=== PATIENT | male | born 1970 | race Caucasian/White ===

== ENCOUNTER → 2016-09-13 | Day surgery (SDC) | payer OTHER ==
[2016-09-05 13:18] VITALS: BMI 41.0
[~2016-09-13] VITALS: Ht 190.5 cm; Wt 148.2 kg
[~2016-09-13] MED LIST: CZR25 PO; FLUO20CA35 PO; LIDOCAINE HCL 2% 2 ML VIAL (20MG/ML) ONE; MIDAZOLAM HCL 1 MG/ML 2ML VIAL ONE; OMEP40CA41 PO; PROPOFOL IV EMULSION 10 MG/ML 20 ML VIAL IV ONE; RANI150T3 PO
[2016-09-13 12:09] VITALS: Ht 190.5 cm; Wt 148.2 kg
--- NOTE | 2016-09-13 12:42 | Endo History and Physical ---
History & Physical Date of Service: Sep 13, 2016. Chief Complaint: acid reflux, change in bowel habits, fm hx of colon cancer Referring Physician: Dr. Rios History of Present Illness 46 yo CM who presents for EGD secondary to GERD and colonoscopy secondary to family history of colon cancer. Past Surgical History Hx Cardiac Surgery: No Hx Abdominal Surgery: Yes (APPY) Hx Post-Op Nausea and Vomiting: No Hx Cancer Surgery: No Hx Thoracic Surgery: No Hx Orthopedic: Yes (LEFT KNEE ARTHROSCOPY) Hx Urinary Tract Surgery: Yes (VASECTOMY) Family History Colon CA, Polyp, IBD Social History Smoking Status: Former Smoker Hx Substance Use: No Hx Alcohol Use: Yes (OCCASIONALLY) Allergies Coded Allergies: BARRINGTON Inhibitors (Verified Allergy, Unknown, COUGH, 09/13/16) Prochlorperazine (Verified Allergy, Unknown, distonic reaction, wanna climb out of skin , 09/13/16) Current Medications Reported Home Medications Medications Dose Route/Sig Max Daily Dose Days Date Category Zantac (Ranitidine HCl) 150 Mg Tab 150 Mg PO HS 09/05/16 Reported Prilosec (Omeprazole) 40 Mg Cap 40 Mg PO QAM 09/05/16 Reported Prozac (Fluoxetine HCl) 20 Mg Cap 20 Mg PO QAM 09/05/16 Reported Losartan Potassium 25 Mg Tab 1 Tab PO QAM 09/05/16 Reported Vital Signs Weight (Kilograms): 148.18 Height (Feet): 6 Height (Inches): 3 Date Time Temp Pulse Resp B/P (MAP) Pulse Ox O2 Delivery O2 Flow Rate FiO2 09/13/16 12:14 37 77 20 140/87 (104) 97 Room Air Physical Exam General Appearance: WD/WN, no apparent distress Respiratory/Chest: Auscultation: breath sounds normal Cardiovascular: Heart Auscultation: RRR Abdomen: Bowel Sounds: normal Inspection & Palpation: soft, non-distended, no tenderness, guarding & rebound Assessment and Plan Assessment: 46 yo CM who presents for EGD secondary to GERD and colonoscopy secondary to family history of colon cancer. Plan: Proceed with EGD and colonoscopy.
--- NOTE | 2016-09-13 13:53 | GI REPORT ---
Procedure Date: 09/13/2016 1:04 PM Procedure: Upper GI endoscopy Indications: Gastro-esophageal reflux disease Medicines: Monitored Anesthesia Care Complications: No immediate complications. Estimated Blood Loss: Estimated blood loss: none. Procedure: Pre-Anesthesia Assessment: - Prior to the procedure, a History and Physical was performed, and patient medications and allergies were reviewed. The patient's tolerance of previous anesthesia was also reviewed. The risks and benefits of the procedure and the sedation options and risks were discussed with the patient. All questions were answered, and informed consent was obtained. Prior Anticoagulants: The patient has taken no previous anticoagulant or antiplatelet agents. ASA Grade Assessment: III - A patient with severe systemic disease. After reviewing the risks and benefits, the patient was deemed in satisfactory condition to undergo the procedure. After obtaining informed consent, the endoscope was passed under direct vision. Throughout the procedure, the patient's blood pressure, pulse, and oxygen saturations were monitored continuously. The scope was introduced through the mouth, and advanced to the second part of duodenum. The upper GI endoscopy was accomplished without difficulty. The patient tolerated the procedure well. Findings: The examined esophagus was normal. Multiple 3 to 7 mm sessile polyps with no stigmata of recent bleeding were found in the gastric fundus and on the greater curvature of the stomach. Biopsies were taken with a cold forceps for histology. Localized mild inflammation characterized by erythema was found in the gastric antrum. Biopsies were taken with a cold forceps for histology. The examined duodenum was normal. Impression: - Normal esophagus. - Multiple gastric polyps. Biopsied. - Gastritis. Biopsied. - Normal examined duodenum. Recommendation: - Resume previous diet. - Continue present medications. - Await pathology results. - Return to primary care physician as previously scheduled. Hayder Frost DO 09/13/2016 1:53:15 PM This report has been signed electronically. Note Initiated On: 09/13/2016 1:04 PM I attest to the content of the Intraoperative Record and orders documented therein, exceptions below
--- NOTE | 2016-09-13 14:13 | Discharge Instructions ---
Endoscopy Patient Instructions Date / Procedure(s) Performed Sep 13, 2016. Colonoscopy, EGD Allergy Information Coded Allergies: BARRINGTON Inhibitors (Verified Allergy, Unknown, COUGH, 09/13/16) Prochlorperazine (Verified Allergy, Unknown, distonic reaction, wanna climb out of skin , 09/13/16) Discharge Date / Findings Sep 13, 2016. EGD: Gastritis s/p biopsies, Gastric polyps s/p biopsies Colonoscopy: Colon polyp, Diverticulosis, Internal hemorrhoids Medication Instructions OK to resume all medications today as prescribed Reported Home Medications Medications Dose Route/Sig Max Daily Dose Days Date Category Zantac (Ranitidine HCl) 150 Mg Tab 150 Mg PO HS 09/05/16 Reported Prilosec (Omeprazole) 40 Mg Cap 40 Mg PO QAM 09/05/16 Reported Prozac (Fluoxetine HCl) 20 Mg Cap 20 Mg PO QAM 09/05/16 Reported Losartan Potassium 25 Mg Tab 1 Tab PO QAM 09/05/16 Reported Provider Instructions Activity Restrictions - No exercising or heavy lifting for 24 hours. - Do not drink alcohol the day of the procedure. - Do not drive a car or operate machinery until the day after the procedure. - Do not make any important decisions or sign important papers in 24 hours after the procedure. Following Day: - Return to full activity which may include returning to work/school. Diet Start your diet with liquids and light foods (jello, soup, juice, toast). Then eat your usual diet if not nauseated. Treatment For Common After Affects For mild abdominal pain, bloating, or excessive gas: - Rest - Eat lightly - Lie on right side Follow-Up Information Follow-up with Dr. Rios as scheduled Anesthesia Information What You Should Know You have had a procedure that required some medicine to reduce anxiety and discomfort. This treatment is called moderate sedation. After receiving the treatment, you may be sleepy, but you will be able to breathe on your own. The effects of the treatment may last for several hours. Follow these instructions along with Activity/Diet recommendations noted above: * Do NOT do anything where dizziness or clumsiness would be dangerous. * Rest quietly at home today, then you can be up and about tomorrow. * Have a responsible person stay with you the rest of today. * You may have had an I.V. today. If so, you may take the dressing off later today. Recommendations Call your doctor if: * Trouble breathing * Continuous vomiting for more than 24 hours * Temperature above 101 degrees * Severe abdominal pain or bloating * Pain not relieved by pain medicine ordered * There is increased drainage or redness from any incision * A large amount of rectal bleeding greater than 2-3 tablespoons. (If you had a polyp/s removed or have hemorrhoids, a small amount of blood - from the rectum is to be expected.) * You have any unanswered questions or concerns. IN THE EVENT OF A SERIOUS EMERGENCY, GO TO THE NEAREST EMERGENCY ROOM Your discharge instructions were prepared by provider Hayder Frost. Patient Instructions Signature Page Antony High Patient (or Guardian) Signature/Date: I have read and understand the instructions given to me by my caregivers. Caregiver/RN/Doctor Signature/Date: The above-named patient and/or guardian has received patient instructions on this date. + Original Patient Signature Page (only) stays with chart. Please make copy for patient.
--- NOTE | 2016-09-13 14:17 | Anesthesiology Progress Note ---
Anesthesia Post Op Note Date & Time Sep 13, 2016 at 14:17 Vital Signs Pain Intensity: 0 Vital Signs Past 12 Hours Date Time Temp Pulse Resp B/P (MAP) Pulse Ox O2 Delivery O2 Flow Rate FiO2 09/13/16 12:14 37 77 20 140/87 (104) 97 Room Air Notes Mental Status: alert / awake / arousable, participated in evaluation Pt Amnestic to Procedure: Yes Nausea / Vomiting: adequately controlled Pain: adequately controlled Airway Patency, RR, SpO2: stable & adequate BP & HR: stable & adequate Hydration State: stable & adequate Anesthetic Complications: no major complications apparent
--- NOTE | 2016-09-13 14:25 | GI REPORT ---
Procedure Date: 09/13/2016 1:50 PM Procedure: Colonoscopy Indications: Family history of colonic polyps in a first-degree relative Medicines: Monitored Anesthesia Care Complications: No immediate complications. Estimated Blood Loss: Estimated blood loss: none. Procedure: Pre-Anesthesia Assessment: - Prior to the procedure, a History and Physical was performed, and patient medications and allergies were reviewed. The patient's tolerance of previous anesthesia was also reviewed. The risks and benefits of the procedure and the sedation options and risks were discussed with the patient. All questions were answered, and informed consent was obtained. Prior Anticoagulants: The patient has taken no previous anticoagulant or antiplatelet agents. ASA Grade Assessment: III - A patient with severe systemic disease. After reviewing the risks and benefits, the patient was deemed in satisfactory condition to undergo the procedure. After I obtained informed consent, the scope was passed under direct vision. Throughout the procedure, the patient's blood pressure, pulse, and oxygen saturations were monitored continuously. The Scope was introduced through the anus and advanced to the terminal ileum. The colonoscopy was performed without difficulty. The patient tolerated the procedure well. The quality of the bowel preparation was good. The terminal ileum, ileocecal valve, appendiceal orifice, and rectum were photographed. Findings: A 5 mm polyp was found in the ascending colon. The polyp was sessile. The polyp was removed with a hot snare. Resection and retrieval were complete. Multiple small-mouthed diverticula were found in the sigmoid colon. Non-bleeding internal hemorrhoids were found during retroflexion. The hemorrhoids were small. Impression: - One 5 mm polyp in the ascending colon, removed with a hot snare. Resected and retrieved. - Diverticulosis in the sigmoid colon. - Non-bleeding internal hemorrhoids. Recommendation: - Resume previous diet. - Continue present medications. - Repeat colonoscopy for surveillance based on pathology results. - Return to primary care physician as previously scheduled. Hayder Frost DO 09/13/2016 2:24:38 PM This report has been signed electronically. Note Initiated On: 09/13/2016 1:50 PM I attest to the content of the Intraoperative Record and orders documented therein, exceptions below
[2016-09-13 14:45] VITALS: BP 130/79; PULSE 72; O2SAT 95
== END | disposition home or self-care (01) ==
LOC: C.GI 11:50
PROVIDERS: ATTEND Internal Medicine
DX: R19.4 Change in bowel habit (principal); D12.2 Benign neoplasm of ascending colon; Z83.71 Family history of colonic polyps; K57.31 Diverticulosis of large intestine without perforation or abscess with bleeding; K64.8 Other hemorrhoids; K21.9 Gastro-esophageal reflux disease without esophagitis; K31.7 Polyp of stomach and duodenum; K29.70 Gastritis, unspecified, without bleeding

== ENCOUNTER → 2016-11-26 | Outpatient (CLI) | payer OTHER ==
[~2016-11-26] MED LIST changes: -LIDOCAINE HCL 2% 2 ML VIAL (20MG/ML) ONE; -MIDAZOLAM HCL 1 MG/ML 2ML VIAL ONE; -PROPOFOL IV EMULSION 10 MG/ML 20 ML VIAL IV ONE
== END | disposition home or self-care (01) ==
LOC: C.PATHSPEC 16:20
PROVIDERS: ATTEND Dermatology
DX: D23.5 Other benign neoplasm of skin of trunk (principal)

== ENCOUNTER → 2017-01-02 | Outpatient (CLI) | payer BC | END | disposition home or self-care (01) | LOC: C.PATHSPEC 12:57 | PROVIDERS: ATTEND Dermatology | DX: L91.8 Other hypertrophic disorders of the skin (principal) ==

== ENCOUNTER → 2017-03-13 | Outpatient (CLI) | payer BC ==
--- NOTE | 2017-03-13 13:12 | DIAGNOSTIC IMAGING REPORT ---
LEFT ANKLE 3 VIEWS CLINICAL HISTORY: Left ankle injury. FINDINGS: 3 views of the left ankle are obtained. No prior studies are available for comparison at the time of dictation. The skeletal structures are well mineralized. No fracture is seen. The ankle mortise is intact. There is a joint effusion, and soft tissue swelling is present around ankle. Large dorsal and plantar calcaneal enthesophytes are identified. IMPRESSION: 1. Joint effusion and soft tissue swelling with no radiographic evidence of left ankle fracture. 2. Large heel spurs are noted. Electronically signed by: Torres Soto M.D. 03/13/2017 1:10 PM Dictated Date/Time: 03/13/2017 1:08 PM
== END | disposition home or self-care (01) ==
LOC: C.RADBC 12:52
PROVIDERS: ATTEND Nurse Practitioner Adult Health
DX: S99.912A Unspecified injury of left ankle, initial encounter (principal); M25.472 Effusion, left ankle; M79.89 Other specified soft tissue disorders; M77.32 Calcaneal spur, left foot; X58.XXXA Exposure to other specified factors, initial encounter